=== PATIENT | male | born 1965 | race Caucasian/White ===

== ENCOUNTER 2017-08-20 20:57 | Emergency (ER) | payer SELFPAY ==
[~2017-08-20] VITALS: Ht 177.8 cm; Wt 81.6 kg
--- NOTE | 2017-08-20 21:00 | NUR ---
Pt brought in by Tr [facility] for right wrist pain, pre-book. Officer reports that Pt was brought in for public meth use. VSS. ER aware. Continue to monitor.
[2017-08-20 21:10] VITALS: BP 162/109
--- NOTE | 2017-08-20 21:30 | NUR ---
Pt escorted to radiology by Mary [facility]
--- NOTE | 2017-08-20 21:33 | NUR ---
Pt returned from radiology
[2017-08-20 21:45] VITALS: BP 162/90
--- NOTE | 2017-08-20 21:45 | NUR ---
Patient discharged with v/s stable. Written and verbal after care instructions given and explained. Patient verbalized understanding. Escorted by [place] [employer] with steady gait. All questions addressed prior to discharge. Advised to follow up with PMD.
== END 2017-08-20 21:45 ==
LOC: MED 20:57
DX: M19.031 Primary osteoarthritis, right wrist (principal)
CPT/HCPCS: 73110; 99284